=== PATIENT | female | born 1945 | race Caucasian/White ===

== ENCOUNTER 2016-07-22 09:57 | Outpatient (CLI) | payer MEDICARE, MEDICAID | END 2016-07-22 09:58 | disposition critical access hospital (66) | LOC: EMS 09:57 | PROVIDERS: ATTEND Surgery | DX: R10.10 Upper abdominal pain, unspecified (principal); R11.2 Nausea with vomiting, unspecified | CPT/HCPCS: A0425; A0427 ==

== ENCOUNTER 2016-07-22 10:37 | Inpatient (IN) | payer MEDICARE, MEDICAID ==
[2016-07-22] MEDS ORDERED: ONDANSETRON 4 MG/2 ML VIAL IVP STA (10:43)
[2016-07-22] MEDS ORDERED: SODIUM CHLORIDE 0.9% 1,000 ML IV ONE (10:43)
[2016-07-22] MEDS ORDERED: ACETAMINOPHEN 1,000 MG/100 ML 100 ML IV STA (10:43)
--- NOTE | 2016-07-22 10:45 | ED Physician Documentation ---
History of Present Illness - Stated complaint Stated Complaint: ABD PAIN,N/V, CHILLS - Chief complaint Chief Complaint: Abd Pain - Additonal information Additional information: hx from pt 71 female hx cervical cancer s/p hyst 1980 and also s/p appy and carl 2 days of upper abd pain intractable non bloody NV, no diarrhea, no urinary sx, no CP SO or fever no travel no bad food no sick contacts no hx of similar sx Review of Systems Constitutional: denies: Fever, Chills Cardiac: denies: Chest pain / pressure Respiratory: denies: Dyspnea GI: reports: Abdominal Pain, Nausea, Vomiting. denies: Diarrhea : denies: Dysuria Musculoskeletal: denies: Back pain Endocrine: denies: Easy bruising / bleeding Immunocompromised: denies: Immunocompromised PD PAST MEDICAL HISTORY - Allergies Allergies/Adverse Reactions: Allergies Allergy/AdvReac Type Severity Reaction Status Date / Time No Known Drug Allergies Allergy Verified 07/22/16 10:43 PD ED PE NORMAL - Vitals Vital signs reviewed: Yes - Neck Neck: Supple, no meningeal sign - Cardiac Cardiac: RRR - Respiratory Respiratory: No respiratory distress, Clear bilaterally - Abdomen Abdomen: Soft, Other (upper abd TTP, no pulsatile mass, no distension, no rebound or guarding) - Derm Derm: Normal color - Neuro Neuro: Alert and oriented X 3 Results - Vitals Vitals: Vital Signs - 24 hr 07/22/16 07/22/16 07/22/16 10:38 12:00 12:49 Temperature 36.2 C L Heart Rate 78 78 86 Respiratory 18 16 24 Rate Blood Pressure 114/80 144/80 H 158/97 H O2 Saturation 100 94 07/22/16 15:42 Temperature Heart Rate 68 Respiratory 13 Rate Blood Pressure 150/81 H O2 Saturation 95 Oxygen O2 Source Room air - EKG (time done) 1055 Rate: Rate (enter#) (74) Rhythm: NSR [place]: Normal Intervals: Normal OR Ischemia: Normal ST segments - Labs Labs: Laboratory Tests 07/22/16 07/22/16 07/22/16 11:34 11:34 11:34 WBC 15.6 H RBC 5.21 Hgb 16.2 H Hct 47.3 H MCV 90.8 MCH 31.1 H MCHC 34.2 RDW 13.8 Plt Count MPV Neut # 13.1 H Lymph # 1.5 Grainger # 0.9 Eos # 0.0 Baso # 0.1 Absolute Nucleated RBC 0.00 Nucleated RBCs 0.0 Manual Slide Review Indicated Platelet Estimate NORMAL (130-450,000) Platelet Morphology PLATELET CLUMPING RBC Morph Micro Appear NORMAL APPEARANCE Sodium 134 L Potassium 3.7 Chloride 90 L Carbon Dioxide 33 H Anion Gap 11.0 BUN 40 H Creatinine 0.7 Estimated GFR (MDRD) 83 L Glucose 129 H Glycated Hemoglobin Estim Average Glucose Calcium 9.0 Total Bilirubin 0.6 AST 13 ALT 13 Alkaline Phosphatase 83 Troponin I < 0.04 C-Reactive Protein Total Protein 6.9 Albumin 3.7 Globulin 3.2 Albumin/Globulin Ratio 1.2 Amylase Lipase 24 Urine Color Urine Clarity Urine pH Ur Specific [place] Urine Protein Urine Glucose (UA) Urine Ketones Urine Occult Blood Urine Nitrite Urine Bilirubin Urine Urobilinogen Ur Leukocyte Esterase Urine RBC Urine WBC Ur Squamous Epith Cells Amorphous Sediment Urine Bacteria Ur Microscopic Review Urine Culture Comments 07/22/16 07/22/16 07/22/16 11:34 11:34 13:18 WBC RBC Hgb Hct MCV MCH MCHC RDW Plt Count MPV Neut # Lymph # Grainger # Eos # Baso # Absolute Nucleated RBC Nucleated RBCs Manual Slide Review Platelet Estimate Platelet Morphology RBC Morph Micro Appear Sodium Potassium Chloride Carbon Dioxide Anion Gap BUN Creatinine Estimated GFR (MDRD) Glucose Glycated Hemoglobin 5.5 Estim Average Glucose 111 H Calcium Total Bilirubin AST ALT Alkaline Phosphatase Troponin I C-Reactive Protein < 1.0 Total Protein Albumin Globulin Albumin/Globulin Ratio Amylase 43 Lipase Urine Color YELLOW Urine Clarity CLOUDY Urine pH 6.0 Ur Specific [place] 1.025 Urine Protein 30 H Urine Glucose (UA) NEGATIVE Urine Ketones NEGATIVE Urine Occult Blood LARGE H Urine Nitrite POSITIVE H Urine Bilirubin NEGATIVE Urine Urobilinogen 1 (NORMAL) Ur Leukocyte Esterase NEGATIVE Urine RBC 11-25 H Urine WBC 4-5 Ur Squamous Epith Cells FEW Squamous Amorphous Sediment Moderate Urine Bacteria Many H Ur Microscopic Review INDICATED Urine Culture Comments INDICATED - Rads (name of study) abd sono Radiology: See rad report (large fluid in stomach) AAS Radiology: See rad report (normal - stomach does not appear distended) PD MEDICAL DECISION MAKING - ED course ED course: CT not avail so started with abd sono sono shows large amt fluid in stomach CT still not avail concern for SBO - got AAS AAS neg for SBO and stomach did not appear dilated on plain films - no AFL etc labs notable for urine infection gave rocephin despite zofran and IVF pt still feels terrible, weak, nauseated do not think she can be dced home will obs for IVF and antibiotics given hx cancer might consider getting a CT while pt is here when CT machine is functional again later today addendum - pt did get the CT after being admitted and it again shows a dilated stomach possibly gastroparesis or outlet obstruction Departure - Departure Disposition: ED Place in Observation Clinical Impression: Dehydration Urinary tract infection Qualifiers: Urinary tract infection type: site unspecified Hematuria presence: with hematuria Qualified Code(s): N39.0 - Urinary tract infection, site not specified Vomiting Qualifiers: Vomiting type: unspecified Vomiting Intractability: unspecified Nausea presence : with nausea Qualified Code(s): R11.2 - Nausea with vomiting, unspecified Discharge Date/Time: 07/22/16 17:46
[2016-07-22] MEDS ORDERED: ACETAMINOPHEN 1,000 MG/100 ML 100 ML IV ONE (11:12)
[2016-07-22] MEDS ORDERED: ONDANSETRON 4 MG/2 ML VIAL ONE (11:13)
[2016-07-22 11:44] LABS: BASOPHILS # (AUTO) 0.1 10^3/uL (0.0-0.1); BASOPHILS % (AUTO) 0.4 %; EOSINOPHILS % (AUTO) 0.1 %; HCT - HEMATOCRIT 47.3 % (37.0-47.0); HGB - HEMOGLOBIN 16.2 g/dL (12.0-16.0); LYMPHOCYTES # (AUTO) 1.5 10^3/uL (1.5-3.5); LYMPHOCYTES % (AUTO) 9.9 %; MEAN CORPUSCULAR HEMOGLOBIN 31.1 pg (27.0-31.0); MEAN CORPUSCULAR HGB CONC 34.2 g/dL (32.0-36.0); MEAN CORPUSCULAR VOLUME 90.8 fL (81.0-99.0); MONOCYTES # (AUTO) 0.9 10^3/uL (0.0-1.0); MONOCYTES % (AUTO) 5.5 %; NEUTROPHILS # (AUTO) 13.1 10^3/uL (1.5-6.6); NEUTROPHILS % (AUTO) 84.1 %; RED BLOOD COUNT 5.21 10^6/uL (4.20-5.40); RED CELL DISTRIBUTION WIDTH 13.8 % (12.0-15.0); UNCORRECTED WHITE BLOOD COUNT 17.5 x10^3/uL; WHITE BLOOD COUNT 15.6 x10^3/uL (4.8-10.8)
[2016-07-22 11:53] LABS: ALBUMIN/GLOBULIN RATIO 1.2 (1.0-2.2); BILIRUBIN,TOTAL 0.6 mg/dL (0.2-1.0); CREATININE 0.7 mg/dL (0.4-1.0); POTASSIUM 3.7 mmol/L (3.5-5.0); TOTAL PROTEIN 6.9 g/dL (6.7-8.2)
[2016-07-22 12:26] LABS: PLATELET ESTIMATE, MANUAL NORMAL (130-450,000) (NORMAL); PLATELET MORPHOLOGY PLATELET CLUMPING (NORMAL)
--- NOTE | 2016-07-22 13:00 | Ultrasound Report ---
COMPLETE ABDOMINAL ULTRASOUND: 07/22/2016 CLINICAL INDICATION: Abdominal pain. TECHNIQUE: Real-time scanning was performed with account service representative static images obtained. FINDINGS: The liver measures 13.4 cm. An 1.2 cm cyst is noted in the left lobe. No solid hepatic les ion or intrahepatic biliary dilatation is present. The common bile duct measures 7 mm. The patient is status post cholecystectomy. The right kidney measures 9.5 cm, and is unremarkable. A 2.9 cm calcifi cation is noted between the right kidney and liver, likely representing a calcified adrenal gland. Th e left kidney measures 9.7 cm, and demonstrates peripelvic cysts. The spleen measures 9.3 cm, and amrtina ears unremarkable. The abdominal aorta is normal in caliber. The inferior vena cava is unremarkable. There is a large amount of fluid within the stomach. No free fluid is seen. IMPRESSION: LARGE AMOUNT OF FLUID IN THE STOMACH. CHANGES OF CHOLECYSTECTOMY. LIKELY CALCIFICATION O F THE RIGHT ADRENAL GLAND, WHICH IS FREQUENTLY DUE TO REMOTE TRAUMA. JOB #: [id number] EXT JOB #:[id number]
[2016-07-22 13:28] LABS: BILIRUBIN,URINE NEGATIVE (NEGATIVE); UA w/ MICROSCOPIC CHARGE YES
[2016-07-22 13:45] LABS: UR CULTURE IF IND INDICATED
[2016-07-22] MEDS ORDERED: cefTRIAXone 1 GM in SODIUM CHLORIDE 0.9% MINIBAG 100 ML IV STA (13:50)
--- NOTE | 2016-07-22 13:52 | XRAY Preliminary Report ---
Exam: XR Abdomen Acute IMPRESSION: Normal abdominal series (including 1-view chest). [facility] SITE ID: [id number]
[2016-07-22] MEDS ORDERED: cefTRIAXone 1 GM VIAL ONE (13:54)
--- NOTE | 2016-07-22 13:55 | XRAY Report ---
EXAM: ABDOMINAL SERIES AND PA CHEST EXAM DATE: 07/22/2016 01:27 PM. CLINICAL HISTORY: Nausea and vomiting. Clinical concern for small bowel obstruction. COMPARISON: 07/22/2016 ultrasound. TECHNIQUE: 2 views abdomen and 1 view chest. FINDINGS: CHEST: Lungs/Pleura: No focal opacities. No effusion or pneumothorax. Mediastinum: Within exam limitations, cardiomediastinal contour is normal. ABDOMEN: Bowel Gas Pattern: Within normal limits. No dilated loops or abnormal fluid levels. Free Air: None. Other: None. IMPRESSION: Normal abdominal series (including 1-view chest). [facility] Referring Provider Line: [phone] SITE ID: [id number]
[2016-07-22 16:27] LABS: AMYLASE 43 U/L (28-100)
[2016-07-22 16:37] LABS: HEMOGLOBIN A1C 0.63 g/dL
[2016-07-22] MEDS ORDERED: ACETAMINOPHEN 325 MG TABLET PO PRN (17:07)
[2016-07-22] MEDS ORDERED: PROMETHAZINE 25 MG/1 ML VIAL IM PRN (17:07)
[2016-07-22] MEDS ORDERED: PROCHLORPERAZINE 10 MG/2 ML VIAL IVP PRN (17:07)
[2016-07-22] MEDS ORDERED: ONDANSETRON 4 MG/2 ML VIAL IVP PRN (17:07)
[2016-07-22] MEDS ORDERED: SODIUM CHLORIDE FLUSH 0.9% 10 ML SYRINGE IVP PRN (17:07)
[2016-07-22] MEDS ORDERED: IOPAMIDOL-300 100 ML VIAL IVP ONE (18:00)
[2016-07-22] MEDS: SODIUM CHLORIDE FLUSH 0.9% 10 ML SYRINGE IVP SCH (18:14)
[2016-07-22] MEDS: D5.45NS W/20 MEQ KCL 1,000 ML IV SCH (18:14)
[2016-07-22] MEDS: CIPROFLOXACIN 400 MG/200 ML 200 ML IV SCH (18:14)
[2016-07-22] MEDS: NICOTINE 21 MG PATCH TOP SCH (18:15)
[2016-07-22] MEDS: PANTOPRAZOLE 40 MG VIAL IVP SCH (18:15)
[2016-07-22 18:39] LABS: BILIRUBIN,URINE NEGATIVE (NEGATIVE); PH,URINE 8.5 PH (5.0-7.5)
--- NOTE | 2016-07-22 18:49 | HISTORY & PHYSICAL EXAMINATION ---
DATE OF ADMISSION: 07/22/2016 CHIEF COMPLAINT: Abdominal pain, nausea, vomiting and chills with intractable vomiting. PRIMARY CARE PROVIDER: Nelida Manuel. HISTORY OF PRESENT ILLNESS: The patient is a 71-year-old thin female who [facility] with a complaint of abdominal pain, nausea, vomiting x3 days, worsening today. The patient states ashok t she has had 2 days of upper abdominal pain, 3 days of intractable nonbloody vomiting, nausea, no di arrhea, that came on quickly. The patient states that she has been in her usual state of health prior to before this started. The patient states that today her symptoms became worse. She started having burning upper chest pain and was vomiting bile. She states she has had no sick contacts, she has not eaten anything that did not agree with her stomach and she has had no history of travel. She has neve r had similar symptoms like this in the past. She states that a couple days ago she was given some yo gurt. She had some smoothies that were made by her daughter, and she has not eaten any other food ashok t is not normally what she eats. The patient states that she has even been unable to drink water. She has lost a great deal of weight over the last month and a half, greater than 10 pounds. She has had a lot of stress in her life at this time. She denies smoking any marijuana recently, last time was ap proximately 3 weeks ago. She also smokes cigarettes. Last cigarette she smoked was 3 days ago, and sh e does not drink alcohol. She denies chest pain or shortness of breath. She denies dysuria, hematuria . She has had no numbness, tingling to extremities. No easy bruising or any bleeding from the rectum. She does report having generalized abdominal pain primarily in the upper right and left quadrant ashok t radiates to the back. She is positive for nausea and intractable vomiting. She denies having diarrh ea. The patient was evaluated in the ER. She has had an ultrasound of the abdomen, as well as pending a C T of abdomen and pelvis. She is negative for Feliz sign. She has had her gallbladder and appendix re moved. The patient has no fever at this time. She was noted to have an elevated white blood cell coun t of 15.6 with an elevated hemoglobin and is slightly dehydrated. Troponins were also done which was negative. Amylase and lipase were also within normal limits. Urinalysis was performed that did come b ack positive for nitrites, blood, and multiple white blood cell counts. This was a clean catch, a cat heterized urine has been requested since the first had no leukocyte esterase noted. Questionable whet her this is a urinary source infection or not. The patient does have significant history of cervical cancer with a hysterectomy back in 1980. The patient will be admitted into observation for further ev aluation and management of vomiting and hydration. ALLERGIES: NO KNOWN DRUG ALLERGIES. HOME MEDICATIONS: None. PAST MEDICAL HISTORY: Includes cervical cancer, hysterectomy, nicotine dependence, unexplained weight loss. PAST SURGICAL HISTORY: Includes cholecystectomy, appendectomy, hysterectomy. FAMILY HISTORY: The patient states that family had a history of cancer, including grandmother. She do es have children. She is not and is retired. SOCIAL HISTORY: The patient does smoke cigarettes, denies drinking alcohol and has smoked marijuana; however, it has been several weeks. She does not use any other illicit drugs. REVIEW OF SYSTEMS: Ten systems have been reviewed and are negative with the exception as discussed in HPI prior. She is negative for chest pain, shortness of breath, numbness, tingling to extremities, h eadaches. Positive for weakness and fatigue, intractable vomiting, nausea and abdominal pain. PHYSICAL EXAMINATION: CONSTITUTIONAL: The patient is alert, in no acute distress. EYES: Pupils equal, round and react to light and accommodation. Conjunctivae and sclerae was nonicter ic, not injected. ENT: Nares are patent. No nasal discharge. Oropharynx: No masses, exudates or lesions. Mucous membran es moist. NECK: Supple. No thyromegaly noted. CARDIOVASCULAR: S1, S2 noted. No gallops, murmurs or rubs. RESPIRATORY: Breath sounds are clear and equal bilaterally to auscultation and percussion, no retract ions, nasal flaring, or increased work of breathing. GASTROINTESTINAL: Abdomen was soft, nontender. Bowel sounds are hypoactive. No guarding or rebound. GENITOURINARY: No CVA tenderness. No masses palpated. No bladder distention. SKIN: SKIN: Warm, dry, intact. Normal turgor. No evidence of rash, lesions, or cellulitis. MUSCULOSKELETAL: No cyanosis. Pulses were palpable to upper and lower extremities bilaterally. Motor is 5/5 bilaterally. NEUROLOGIC: Sensory is intact, alert, GCS 15. Cranial nerves 2-12 grossly intact. HEMATOLOGIC: No active bleeding. The patient is hemodynamically stable. LYMPHATICS: No cervical, axillary, supraclavicular lymphadenopathy was noted. VITAL SIGNS: Temperature is 36.2, heart rate 78, blood pressure is 114/80, respirations 18, saturatin g 100% on room air. LABORATORY DATA: I personally reviewed all laboratory and diagnostic data in the medical records. The y are as follows. Sodium 134, chloride 90, carbon dioxide 33, BUN 40, GFR 83, glucose 129. Troponin 0 .04. CRP is less than 1, amylase 43, lipase 24, alkaline phosphatase 83, total bilirubin is 0.6. WBC is 15.6, hemoglobin 16.2. Urine is positive for protein, occult blood, nitrites, with negative leukoc yte esterase, red blood cells 11-25 and many bacteria. DIAGNOSTICS: I personally reviewed the diagnostic data, and medical records for 07/22/2016 and result s are as follows. IMAGING: Abdominal ultrasound with impression that shows large amount of fluid in the stomach, change s of cholecystectomy, likely calcification of the right adrenal gland which is frequently due to darlene te trauma, peripelvic cysts, spleen is unremarkable, abdominal aorta normal in caliber and inferior v alec cava is unremarkable. No free fluid is seen. Common bile duct that measures 7 mm. No solid hepati c lesion or intrahepatic biliary dilatation is present. Liver with a 1.2 cm cyst noted in the left lo be. ACUTE ABDOMINAL SERIES, impression shows no focal opacities, no effusion, no pneumothorax, bowel gas pattern is within normal limits. No dilated loops or abnormal fluid levels. No free air. A CT of abdomen and pelvis is pending at this time. ASSESSMENT: 1. Acute intractable vomiting with nausea secondary to possible infection of the kidney with unknown causal organism and possible calcified adrenal gland. 2. Unexplained weight loss with history of cervical metastasis. 3. Nicotine dependence, cigarettes, uncomplicated. 4. Leukocytosis, acute unspecified. 5. Hyponatremia with other electrolyte imbalances from fluid loss. 6. Acute mild dehydration with intractable vomiting. PLAN: 1. Admit the patient to observation, Zofran and Phenergan for nausea and vomiting. CT of abdomen and pelvis pending at this time. The patient will remain n.p.o. Once tolerating food will advance to a ca rdiac diet. IV fluids for gentle hydration and monitoring of electrolytes. Monitoring of kidney funct ion since the patient has acute kidney injury. Continue to monitor amylase, lipase. Continue to monit or white blood cell count. The patient is asymptomatic at this time. No fever; however, blood culture s have been done and will continue to monitor for fever and elevated white blood cell count. Repeat u rinalysis with catheterization since first one was clean catch. If warranted, continue the patient on antibiotic therapy. She was given Rocephin in the ER. Provided counseling for nicotine dependence an d smoking cessation. We will give a nicotine patch. 2. Deep venous thrombosis prophylaxis with SCDs and Lovenox. 3. Tylenol for fever management. 4. The patient was placed on bowel protocol, also given Protonix IV 40 mg for PPI. Time spent on assessment, evaluation with the patient was 45 minutes for assessment and planning. RISK ASSESSMENT/DISPOSITION: The patient is high risk for worsening comorbidities. She will require I V medication with high risk for toxicity. Additional diagnostics, potential surgical consult, and cod e status was addressed at bedside. CODE STATUS: THE PATIENT IS A FULL CODE. The patient was placed in observation status. She will require 1 overnight at this time. JOB #: [id number] EXT JOB #:[id number]
--- NOTE | 2016-07-22 19:04 | CT Preliminary Report ---
Exam: CT Abdomen/Pelvis W/ IMPRESSION: 1. The stomach is fluid-filled and markedly distended. Findings may represent gastric outlet obstruc tion or gastroparesis. 2. The small bowel demonstrates no acute abnormalities. 3. There is distal colon diverticulosis without evidence of diverticulitis. 4. There is a peripherally calcified hypodense lesion within the right suprarenal region. This may be secondary to prior right adrenal infection or trauma. 5. There is mild enlargement of the left adrenal gland which measures 1.9 x 0.9 cm. Comparison with p rior imaging is recommended to demonstrate stability of this finding. 6. No acute focal abnormalities are seen. [facility] SITE ID: [id number]
--- NOTE | 2016-07-22 19:07 | CT Report ---
EXAM: CT ABDOMEN AND PELVIS EXAM DATE: 07/22/2016 06:04 PM. CLINICAL HISTORY: Weight loss. COMPARISONS: None. TECHNIQUE: Routine helical CT imaging was performed through the abdomen and pelvis. IV contrast: 100 cc Isovue-300. Enteric contrast: No. Reconstructions: Coronal and sagittal. In accordance with CT protocol optimization, one or more of the following dose reduction techniques w ere utilized for this exam: automated exposure control, adjustment of mA and/or KV based on patient s ize, or use of iterative reconstructive technique. FINDINGS: Lung Bases: Unremarkable. Liver: Normal. No masses. Gallbladder/Bile Ducts: The gallbladder is surgically absent. Mild intra-and extra hepatic bile duct dilatation which can be within normal limits status post cholecystectomy. Spleen: Normal. Pancreas: Normal. Adrenal Glands: Peripherally calcified hypodensity measuring 2.5 x 2.2 cm within the right suprarenal region may be secondary to prior adrenal infection or trauma. There is mild enlargement of the left adrenal gland. Kidneys: Normal. No masses or hydronephrosis. Peritoneal Cavity/Bowel: There is marked distention of stomach with fluid. The duodenum is decompress ed. Small bowel demonstrates no acute abnormalities. There is moderate stool within colon. There is n o evidence of intraperitoneal free air or free fluid. No enlarged mesenteric or retroperitoneal lymph nodes. The appendix is not clearly seen. Pelvic Organs: No acute pelvic organ abnormalities are seen. Vasculature: There are atheromatous calcifications of the aorta and iliac vessels. Bones: No significant abnormality. Other: None. IMPRESSION: 1. The stomach is fluid-filled and markedly distended. Findings may represent gastric outlet obstruc tion or gastroparesis. 2. The small bowel demonstrates no acute abnormalities. 3. There is distal colon diverticulosis without evidence of diverticulitis. 4. There is a peripherally calcified hypodense lesion within the right suprarenal region. This may be secondary to prior right adrenal infection or trauma. 5. There is mild enlargement of the left adrenal gland which measures 1.9 x 0.9 cm. Comparison with p rior imaging is recommended to demonstrate stability of this finding. 6. No acute focal abnormalities are seen. [facility] Referring Provider Line: [phone] SITE ID: [id number]
[2016-07-22 19:14] LABS: UR CULTURE IF IND INDICATED; WBC,URINE 0-3 /HPF (0-5)
[2016-07-22] MEDS ORDERED: oxyCODONE 5 MG TABLET PO PRN (20:26)
[2016-07-22] MEDS: MORPHINE 2 MG/ML SYRINGE IVP PRN (20:44)
[2016-07-23] MEDS: D5.45NS W/20 MEQ KCL 1,000 ML IV SCH ×2 (01:25→19:46)
[2016-07-23] MEDS: CIPROFLOXACIN 400 MG/200 ML 200 ML IV SCH (06:00)
[2016-07-23] MEDS: SODIUM CHLORIDE FLUSH 0.9% 10 ML SYRINGE IVP SCH ×3 (06:00→19:46)
[2016-07-23] MEDS: PANTOPRAZOLE 40 MG VIAL IVP SCH (06:00)
[2016-07-23] MEDS: TAMSULOSIN 0.4 MG CAPSULE PO SCH (09:15)
[2016-07-23] MEDS: ENOXAPARIN 40 MG/0.4 ML SYRINGE SUBQ SCH (09:15)
[2016-07-23] MEDS: POLYETHYLENE GLYCOL 3350 17 GM PACKET PO SCH (09:17)
[2016-07-23] MEDS: NICOTINE 21 MG PATCH TOP SCH (09:17)
[2016-07-23] MEDS ORDERED: BARIUM SULFATE 135 ML BOTTLE PO ONE (11:02)
--- NOTE | 2016-07-23 11:40 | XRAY Report ---
SINGLE-CONTRAST UPPER GI: 07/23/2016 CLINICAL INDICATION: Possible gastric outlet obstruction. FINDINGS: Initial steam hand view of the abdomen demonstrates no significant interval change from plain films of 07/22/2016. No small bowel dilatation is seen. The patient ingested thick barium. The stomach is distended, with a large amount of fluid within the lumen. Only a trickle of barium could be passed through the first portion of the duodenum, which appeared extremely narrowed on all images. Contrast passed freely through the second and third portions of the duodenum, the fourth portion of the duodenum, and into proximal jejunum. A small amount of gastroesophageal reflux was visualized during the course of the study. IMPRESSION: MARKED NARROWING OF THE FIRST PORTION OF THE DUODENUM, COMPATIBLE WITH GASTRIC OUTLET OBSTRUCTION. CONSIDER CORRELATION WITH ENDOSCOPY. Fluoroscopy time: 5 minutes, 36 seconds; 35 spot images obtained. JOB #: [id number] EXT JOB #: [id number] [facility]
[2016-07-23] MEDS ORDERED: BENZOCAINE/TETRACAINE/BUTAMBEN SPRAY 56 GM TOP ONE (15:07)
[2016-07-23] MEDS ORDERED: SODIUM CHLORIDE 0.9% 1,000 ML IV ONE (15:07)
--- NOTE | 2016-07-23 15:22 | PROVIDER PROGRESS NOTE ---
Assessment/Plan - Problem List (1) Gastric outlet obstruction Assessment/Plan: ongoing. Patient is NPO. UGI showed marked narrowing of the first portion of the duodenum, compatible with gastric outlet obstruction. Patient is to go for endoscopy with Dr. Langley. (2) Abnormal loss of weight Assessment/Plan: ongoing, poss related to obstruction and intractable vomiting with history of cervical cancer. EGD scheduled. nutrition consult recommended. (3) Intractable vomiting with nausea Qualifiers: Vomiting type: unspecified Qualified Code(s): R11.2 - Nausea with vomiting , unspecified Assessment/Plan: improving. Patient is NPO. will continue to give IV zofran and phenergan as needed. monitor electrolytes with dailylabs (4) Nicotine dependence, cigarettes, uncomplicated Assessment/Plan: ongoing. nicotine patch as needed and counseling and education given for cessation - Current Meds Current Meds: Current Medications Generic Name Dose Route Start Last Admin Trade Name Freq PRN Reason Stop Dose Admin Enoxaparin Sodium 40 mg 07/23/16 09:00 07/23/16 09:15 Lovenox SUBQ 40 mg DAILY NAZIA Administration Potassium Chloride/Dextrose/Sod Cl 1,000 mls @ 100 mls/hr 07/22/16 18:00 01:25 D5.45ns W/20 Meq Kcl IV 100 mls/hr .Q10H NAZIA Administration Morphine Sulfate 2 mg 07/22/16 20:26 07/22/16 20:44 Morphine IVP 2 mg Q2HR PRN Administration PAIN Nicotine 1 patch 07/22/16 18:00 07/23/16 09:17 Nicoderm TOP Not Given DAILY NAZIA Pantoprazole Sodium 40 mg 07/22/16 18:00 07/23/16 06:00 Protonix IVP 40 mg QDAC NAZIA Administration Polyethylene Glycol 17 gm 07/23/16 09:00 07/23/16 09:17 Miralax PO Not Given DAILY NAZIA Sodium Chloride 10 ml 07/22/16 22:00 07/23/16 09:17 Normal Saline Flush 0.9% IVP 10 ml Q8HR NAZIA Administration Tamsulosin HCl 0.4 mg 07/23/16 09:00 07/23/16 09:15 Flomax PO 0.4 mg DAILY NAZIA Administration - Lab Result Lab results reviewed: Yes Fish Bone Diagrams: 07/22/16 11:34 07/22/16 11:34 Other Lab Results: Abnormal Lab Results 07/22/16 07/22/16 07/22/16 11:34 11:34 11:34 WBC 15.6 x10^3/uL H x10^3/uL (4.8-10.8) Hgb 16.2 g/dL H g/dL (12.0-16.0) Hct 47.3 % H % (37.0-47.0) MCH 31.1 pg H pg (27.0-31.0) Neut # 13.1 10^3/uL H 10^3/uL (1.5-6.6) Sodium 134 mmol/L L mmol/L (135-145) Chloride 90 mmol/L L mmol/L (101-111) Carbon Dioxide 33 mmol/L H mmol/L (21-32) BUN 40 mg/dL H mg/dL (6-20) Estimated GFR (MDRD) 83 L (>89) Glucose 129 mg/dL H mg/dL (70-100) Estim Average Glucose 111 H (70-100) Urine pH Urine Protein Urine Occult Blood Urine Nitrite Urine RBC Urine Bacteria 07/22/16 07/22/16 13:18 18:20 WBC Hgb Hct MCH Neut # Sodium Chloride Carbon Dioxide BUN Estimated GFR (MDRD) Glucose Estim Average Glucose Urine pH 8.5 PH H PH (5.0-7.5) Urine Protein 30 mg/dL H mg/dL (NEGATIVE) Urine Occult Blood LARGE H MODERATE H (NEGATIVE) (NEGATIVE) Urine Nitrite POSITIVE H POSITIVE H (NEGATIVE) (NEGATIVE) Urine RBC 11-25 /HPF H /HPF 6-10 /HPF H /HPF (0-5) (0-5) Urine Bacteria Many /HPF H /HPF Moderate /HPF H /HPF (None Seen) (None Seen) - EKG Results EKG Interpreted Independently: No - Diagnostic Imaging Results Diagnostic Imaging Results: positive: Prelim report reviewed, See rad report Diagnostic Imaging Results Comments: Pending EGD for gastric outlet obstruction - Additional Planning Condition/Complexity: Stable My Orders: My Active Orders 07/22/16 17:07 Activity Orders [RC] Routine IO [RC] IOSHIFT Initiate Bowel Care Protocol [RC] QSHIFT Initiate Flu Vaccine Screening [RC] .once Initiate Line Care Protocol [RC] QSHIFT Initiate Personal Care Protoco [RC] QSHIFT Initiate Pneumonia Vaccine Scr [RC] .once Oxygen Therapy [RC] Routine Vital Signs [RC] Q8HR Acetaminophen [Tylenol] 650 mg PO Q4HR PRN Ondansetron Inj [Zofran Inj] 4 mg IVP Q6HR PRN Prochlorperazine Inj [Compazine Inj] 10 mg IVP Q6HR PRN Promethazine Inj [Phenergan Inj] 25 mg IM Q6HR PRN Sodium Chloride Flush 0.9% [Normal Saline Flush 0.9%] 10 ml IVP PRN PRN Code Status [OTHERS] Routine Condition of Patient [OTHERS] Routine DVT Prophylaxis [OTHERS] Routine 07/22/16 17:08 Daily Weight [RC] 0600 07/22/16 17:09 Foot Pumps [RC] QSHIFT 07/22/16 18:00 D5.45ns W/20 Meq KCl 1,000 ml IV 100 mls/hr Nicotine 21 mg Patch [Nicoderm] 1 patch TOP DAILY Pantoprazole [Protonix] 40 mg IVP QDAC 07/22/16 18:20 CUL, URINE [RM] Stat 07/22/16 22:00 Sodium Chloride Flush 0.9% [Normal Saline Flush 0.9%] 10 ml IVP Q8HR 07/23/16 08:55 NPO [DIET] 07/23/16 09:00 Enoxaparin [Lovenox] 40 mg SUBQ DAILY Polyethylene Glycol 3350 [Miralax] 17 gm PO DAILY Tamsulosin [Flomax] 0.4 mg PO DAILY 07/23/16 13:15 General Surgery Consult [CONS] Routine Consult/Specialty: OT, PT, Surgery Plan Discussed with:: Patient, Case Management Time Spent: 31-60 minutes (Patient will require another 24-48 hours inpatient treatment. She is scheduled for EGD for obstruction. She will require IV medication with high risk for toxicity, additional diagnostics and consult.) Subjective - Subjective Patient Reports: Resting Comfortably, No Complaints Nursing Reports: No Complaints, Vomitting (vomiting is controlled. no nausea) Objective Vital Signs: Vital Signs - 24 hr 07/22/16 07/22/16 07/23/16 18:10 21:05 00:30 Temperature 37.2 C 37.2 C 36.7 C Heart Rate [ 76 69 63 Brachial] Respiratory 16 16 16 Rate Blood Pressure 130/78 109/66 110/66 [Right Brachial artery] O2 Saturation 96 94 95 07/23/16 07/23/16 07/23/16 04:50 08:54 12:52 Temperature 36.6 C 37.0 C 37.2 C Heart Rate [ 70 65 68 Brachial] Respiratory 16 18 18 Rate Blood Pressure 107/70 107/62 106/68 [Right Brachial artery] O2 Saturation 96 98 96 Oxygen O2 Source Room air I&O (Last 24 Hrs): Intake and Output Totals x24h 07/21/16 07/22/16 07/23/16 23:59 23:59 23:59 Intake Total 504 1300 Balance 504 1300 General: Alert, Oriented x3, Cooperative HEENT: PERRLA Neck: Supple, No JVD Lymphatic: no adenopathy Neuro: Alert, CN 2-12 Grossly Intact, Oriented Times 3 Cardiovascular: Regular rate, Normal S1, Normal S2 Respiratory: Chest non-tender, No respiratory distress, Breath sounds nml Abdomen: Normal bowel sounds, Soft, No hepatospenomegaly Genitourinary: No Bleeding Rectal: Non-Tender Extremities: No clubbing, No cyanosis, No edema, Normal pulses, No tenderness/ swelling Skin: No rashes, No breakdown, No significant lesion - Results Results: Laboratory Results WBC 15.6 x10^3/uL (4.8-10.8) H 07/22/16 11:34 RBC 5.21 10^6/uL (4.20-5.40) 07/22/16 11:34 Hgb 16.2 g/dL (12.0-16.0) H 07/22/16 11:34 Hct 47.3 % (37.0-47.0) H 07/22/16 11:34 MCV 90.8 fL (81.0-99.0) 07/22/16 11:34 MCH 31.1 pg (27.0-31.0) H 07/22/16 11:34 MCHC 34.2 g/dL (32.0-36.0) 07/22/16 11:34 RDW 13.8 % (12.0-15.0) 07/22/16 11:34 Plt Count 10^3/uL (130-450) 07/22/16 11:34 MPV fL (7.9-10.8) 07/22/16 11:34 Neut # 13.1 10^3/uL (1.5-6.6) H 07/22/16 11:34 Lymph # 1.5 10^3/uL (1.5-3.5) 07/22/16 11:34 [place] # 0.9 10^3/uL (0.0-1.0) 07/22/16 11:34 Eos # 0.0 10^3/uL (0.0-0.7) 07/22/16 11:34 Baso # 0.1 10^3/uL (0.0-0.1) 07/22/16 11:34 Absolute Nucleated RBC 0.00 x10^3/uL 07/22/16 11:34 Nucleated RBCs 0.0 /100WBC 07/22/16 11:34 Manual Slide Review Indicated 07/22/16 11:34 Platelet Estimate NORMAL (130-450,000) (NORMAL) 07/22/16 11:34 Platelet Morphology PLATELET CLUMPING (NORMAL) 07/22/16 11:34 RBC Morph Micro Appear NORMAL APPEARANCE (NORMAL) 07/22/16 11:34 Sodium 134 mmol/L (135-145) L 07/22/16 11:34 Potassium 3.7 mmol/L (3.5-5.0) 07/22/16 11:34 Chloride 90 mmol/L (101-111) L 07/22/16 11:34 Carbon Dioxide 33 mmol/L (21-32) H 07/22/16 11:34 Anion Gap 11.0 (6-13) 07/22/16 11:34 BUN 40 mg/dL (6-20) H 07/22/16 11:34 Creatinine 0.7 mg/dL (0.4-1.0) 07/22/16 11:34 Estimated GFR (MDRD) 83 (>89) L 07/22/16 11:34 Glucose 129 mg/dL (70-100) H 07/22/16 11:34 Glycated Hemoglobin 5.5 % (4.6-6.2) 07/22/16 11:34 Estim Average Glucose 111 (70-100) H 07/22/16 11:34 Calcium 9.0 mg/dL (8.5-10.3) 07/22/16 11:34 Total Bilirubin 0.6 mg/dL (0.2-1.0) 07/22/16 11:34 AST 13 IU/L (10-42) 07/22/16 11:34 ALT 13 IU/L (10-60) 07/22/16 11:34 Alkaline Phosphatase 83 IU/L (42-121) 07/22/16 11:34 Troponin I < 0.04 ng/mL (<0.49) 07/22/16 11:34 C-Reactive Protein < 1.0 mg/dL (0-1.0) 07/22/16 11:34 Total Protein 6.9 g/dL (6.7-8.2) 07/22/16 11:34 Albumin 3.7 g/dL (3.2-5.5) 07/22/16 11:34 Globulin 3.2 g/dL (2.1-4.2) 07/22/16 11:34 Albumin/Globulin Ratio 1.2 (1.0-2.2) 07/22/16 11:34 Amylase 43 U/L (28-100) 07/22/16 11:34 Lipase 24 U/L (22-51) 07/22/16 11:34 TSH 2.49 uIU/mL (0.34-5.60) 07/22/16 11:34 Free T4 1.20 ng/dL (0.58-1.64) 07/22/16 11:34 Free T3 pg/mL 2.58 pg/mL (2.5-3.9) 07/22/16 11:34 PTH Intact 42 pg/mL (12-88) 07/23/16 06:35 Urine Color YELLOW 07/22/16 18:20 Urine Clarity CLEAR (CLEAR) 07/22/16 18:20 Urine pH 8.5 PH (5.0-7.5) H 07/22/16 18:20 Ur Specific [place] 1.010 (1.002-1.030) 07/22/16 18:20 Urine Protein NEGATIVE mg/dL (NEGATIVE) 07/22/16 18:20 Urine Glucose (UA) NEGATIVE mg/dL (NEGATIVE) 07/22/16 18:20 Urine Ketones NEGATIVE mg/dL (NEGATIVE) 07/22/16 18:20 Urine Occult Blood MODERATE (NEGATIVE) H 07/22/16 18:20 Urine Nitrite POSITIVE (NEGATIVE) H 07/22/16 18:20 Urine Bilirubin NEGATIVE (NEGATIVE) 07/22/16 18:20 Urine Urobilinogen 1 (NORMAL) E.U./dL (NORMAL) 07/22/16 18:20 Ur Leukocyte Esterase NEGATIVE (NEGATIVE) 07/22/16 18:20 Urine RBC 6-10 /HPF (0-5) H 07/22/16 18:20 Urine WBC 0-3 /HPF (0-5) 07/22/16 18:20 Ur Squamous Epith Cells FEW Squamous (<= Few) 07/22/16 18:20 Amorphous Sediment Moderate /LPF 07/22/16 13:18 Urine Bacteria Moderate /HPF (None Seen) H 07/22/16 18:20 Ur Microscopic Review INDICATED 07/22/16 13:18 Urine Culture Comments INDICATED 07/22/16 18:20
[2016-07-23] MEDS ORDERED: EPINEPHrine 1 MG/ML AMP IVP ONE (15:24)
[2016-07-23] MEDS ORDERED: LACTATED RINGERS 1,000 ML IV ONE (16:04)
[2016-07-23] MEDS ORDERED: PHENOL THROAT SPRAY 177 ML MM PRN (18:30)
[2016-07-23] MEDS ORDERED: PPN (CLINIMIX E 4.25/5) 2,000 ML with MULTIVITAMIN 10 ML, TRACE ELEMENTS V CONC 1 ML IV SCH ×3 (19:00)
[2016-07-23] MEDS ORDERED: FAT EMULSION 20% 250 ML IV SCH (19:00)
[2016-07-23] MEDS: BENZOCAINE/MENTHOL LOZENGE MM PRN (19:08)
[2016-07-23] MEDS: MORPHINE 2 MG/ML SYRINGE IVP PRN ×2 (22:31→23:52)
[2016-07-24] MEDS: MORPHINE 2 MG/ML SYRINGE IVP PRN ×3 (05:00→14:53)
[2016-07-24 06:07] LABS: BASOPHILS % (AUTO) 0.5 %; EOSINOPHILS # (AUTO) 0.3 10^3/uL (0.0-0.7); EOSINOPHILS % (AUTO) 4.9 %; HCT - HEMATOCRIT 37.6 % (37.0-47.0); HGB - HEMOGLOBIN 12.8 g/dL (12.0-16.0); LYMPHOCYTES # (AUTO) 2.5 10^3/uL (1.5-3.5); MEAN CORPUSCULAR HEMOGLOBIN 31.2 pg (27.0-31.0); MEAN CORPUSCULAR VOLUME 91.6 fL (81.0-99.0); MEAN PLATELET VOLUME 8.6 fL (7.9-10.8); MONOCYTES # (AUTO) 0.4 10^3/uL (0.0-1.0); MONOCYTES % (AUTO) 6.1 %; NEUTROPHILS # (AUTO) 3.7 10^3/uL (1.5-6.6); NEUTROPHILS % (AUTO) 53.5 %; RED BLOOD COUNT 4.11 10^6/uL (4.20-5.40); RED CELL DISTRIBUTION WIDTH 13.6 % (12.0-15.0)
[2016-07-24] MEDS: SODIUM CHLORIDE FLUSH 0.9% 10 ML SYRINGE IVP SCH ×2 (06:21→14:28)
[2016-07-24] MEDS: PANTOPRAZOLE 40 MG VIAL IVP SCH (06:21)
[2016-07-24] MEDS: BENZOCAINE/MENTHOL LOZENGE MM PRN (06:27)
[2016-07-24 06:32] LABS: ALBUMIN/GLOBULIN RATIO 1.3 (1.0-2.2); BILIRUBIN,TOTAL 0.4 mg/dL (0.2-1.0); CALCIUM 8.2 mg/dL (8.5-10.3); CREATININE 0.6 mg/dL (0.4-1.0); POTASSIUM 3.5 mmol/L (3.5-5.0)
--- NOTE | 2016-07-24 08:50 | Discharge Plan ---
Discharge Plan Disposition: 02 Transfer Acute Care Hosp Condition: Stable Activity Restrictions: Activity as Tolerated Shower Restrictions: No Driving Restrictions: No Weight Bearing: Full Weight Additional Instructions or Follow Up instructions: Patient to transfer to [facility] with transport [facility], under the care of Dr Barron Weldon. Patient to go to the surgical unit 10S. She will need evaluation with surgical oncology. She is to have the NG tube clamped and continue with IVF PPN in route. Please send all medical transcripts and copies of EGD and UGI and xrays with patient to [facility]. Please contact family to notify of patient transfer. Please continue with all home medications as prescribed to be held if necessary by transfer facility since patient is to remain NPO at this time. Continue with oxygen therapy in route with transfer. No Smoking: If you smoke, Please STOP! Call for help.
[2016-07-24] MEDS: ENOXAPARIN 40 MG/0.4 ML SYRINGE SUBQ SCH (09:11)
[2016-07-24] MEDS: NICOTINE 21 MG PATCH TOP SCH (09:11)
[2016-07-24] MEDS: TAMSULOSIN 0.4 MG CAPSULE PO SCH (09:11)
[2016-07-24] MEDS: POLYETHYLENE GLYCOL 3350 17 GM PACKET PO SCH (09:13)
[2016-07-24 11:40] VITALS: BP 93/56
[2016-07-24] MEDS ORDERED: fentaNYL 100 MCG/2 ML VIAL IVP ONE (15:05)
[2016-07-24] MEDS ORDERED: GLYCOPYRROLATE 1 MG/5 ML VIAL IVP ONE (15:05)
[2016-07-24] MEDS ORDERED: MIDAZOLAM 2 MG/2 ML VIAL IVP ONE (15:05)
[2016-07-24] MEDS ORDERED: PROPOFOL 200 MG/20 ML VIAL IVP ONE (15:05)
[2016-07-24] MEDS ORDERED: KETAMINE 500 MG/10 ML VIAL IVP ONE (15:05)
--- NOTE | 2016-07-24 15:22 | DISCHARGE SUMMARY ---
DATE OF ADMISSION: 07/23/2016 DATE OF DISCHARGE: 07/24/2016 DISCHARGING PROVIDER: Margie Cm NP. ADMITTING DIAGNOSES: Intractable nausea and vomiting with possible gastric outlet obstruction. Urinary source infection, unspecified DISCHARGE DIAGNOSES 1. 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 2. Unexplained weight loss. 3. Nicotine dependence, cigarettes, uncomplicated. CONSULTATIONS: Surgery, Physical and Occupational Therapy. PROCEDURES Abdomen ultrasound, impression: A large amount of fluid in the stomach, changes of cholecystectomy, likely calcification of the right adrenal gland, which is frequently due to remote trauma. CT of abdomen and pelvis, impression: Shows static fluid filled remarkably distended. Findings represent gastric outlet obstruction, gastroparesis. Small bowel demonstrates no acute abnormalities. Distal colon, diverticulosis without evidence of diverticulitis. Peripherally calcified hypodense lesion with the right suprarenal region secondary to prior right adrenal infection or trauma, mild enlargement of the left adrenal gland, which measures 1.9 x 0.9 cm. Compare with prior imaging is recommended to demonstrate stability of this finding, but no acute focal abnormalities are seen. Upper GI series, impression: Shows marked narrowing of the first portion of the duodenum compatible with gastric outlet obstruction. Consider correlation with endoscopy. Endoscopy, impression: Shows significant for pyloric mass/tumor and personal history of cervical cancer. Biopsies were taken. HOSPITAL COURSE AND TREATMENT: The patient is a 71-year-old thin female who presented through the ER with a complaint of intractable nausea and vomiting with a history of anorexia for approximately 2-3 weeks prior. The patient has a significant history for cervical cancer status post hysterectomy in 1980. Also, history of appendectomy and cholecystectomy. She has had no bad food. No sick contacts or no traveling prior to coming to the ER. She had no complaint of bloody stool, no diarrhea, no chest pain or shortness of breath, but significant for vomiting with no ability to tolerate even liquids. The patient was worked up in the ER, found to have significant elevated white blood cell count of 15.6, hyponatremia, mild dehydration and possible gastric outlet obstruction. The patient was admitted for further evaluation. Consult was made to surgery for an upper GI series and possible EGD. Upper gastrointestinal series did show possible mild obstruction with fluid in the stomach and recommended EGD. Dr. Zapata performed EGD on the patient with biopsies. It was noted that she had a large pyloric mass with a history of cervical cancer. The patient was also started on Rocephin while in the ER for a possible urinary source of infection. The ER urine was a clean catch and dirty. Urine was cultured and found to be positive for E coli. with the dirty specimen. A new specimen of urine by urine cath was obtained and cultured. NO growth and no symptoms. Patient did not need to continue on antibiotics since there was no urinary source infection. Once it was determined that patient had an obstruction with distended stomach and pyloric mass, an NG tube was placed to decompress the stomach. Recommendation was made by the surgical team that the patient be transferred to higher level of care for further evaluation with Surgical Oncology. Call was made to [facility] by recommendation of the patient's family for transfer. Dr. Barron Weldon was contacted and he gladly accepted the patient for transfer. Family was then notified and the patient was prepared for transport for higher level of care. Prior to discharge, the patient had been started on PPN for nutritional support, she had been on IV fluids of D5 1/2 normal saline with 20 of K. IV fluids were stopped prior to PPN being started. The patient continued on Zofran IV for nausea, Protonix 40 mg IV for PPI. The patient's overall wellbeing and demeanor had improved once she knew she was being transferred to a higher level of care. Dr. Zapata was made aware of the patient's status and transfer. PHYSICAL EXAMINATION VITAL SIGNS: At the time of transfer were 36.8, 69, blood pressure was 93/56, respirations 18. She is sating at 94% on room air. CONSTITUTIONAL: The patient was alert, no acute distress. EYES: Pupils are equal, round and react to light and accommodation. Conjunctivae and sclerae was nonicteric, not injected. ENT: Nares are patent. No nasal discharge. Oropharynx with no masses, exudates or lesions. Mucous membranes were moist. NECK: Supple. No thyromegaly. CARDIOVASCULAR: S1, S2 noted. No gallops, murmurs or rubs. RESPIRATORY: Breath sounds are clear and equal bilaterally to auscultation and percussion, no retractions or nasal flaring. GASTROINTESTINAL: Abdomen was soft, nontender. NG tube in place, clamped, no distention, and air was heard for placement of NG tube. SKIN: Warm, dry, intact. Normal turgor. No evidence of rash, lesions, or cellulitis. HEMATOLOGIC: No active bleeding. The patient is hemodynamically stable. LYMPHATICS: No cervical, axillary, supraclavicular lymphadenopathy was noted. PSYCHIATRIC: Pleasant mood. No suicidal ideation and oriented x3. NEUROLOGIC: She was alert, GCS 15. Cranial nerves 2 through 12 grossly intact. Sensory was intact. MUSCULOSKELETAL/EXTREMITIES: The patient had full range of motion with upper and lower extremities. No cyanosis. Pulses were palpable. GENITOURINARY: No CVA tenderness. No masses palpated. No bladder distention. MEDICATIONS AT TIME OF DISCHARGE: hospital ordered 1. Lovenox SQ. 2. Zofran 3. Phenergan IV 4. Protonix 40 mg IV b.i.d. 5. PPN IV for nutrition Patient takes no home medications. INSTRUCTION FOR FOLLOWUP AND DISCHARGE The patient is to be transferred to [facility] under the care of Dr. Barron Weldon. She is to go to the surgical wing [address] [place] [address]. Number has been given for nurse and nurse report. Confirmation and accepting physician has been sent. CT results, EGD results, which was pushed from [facility] to [facility]. All other medical records to be transported with the patient via ACLS ground. The patient was notified and family notified of progress. The patient is stable at the time of transport. Vital signs were within normal limits. The patient is to remain n.p.o. NG tube in place. She will need further evaluation from Oncology and surgical team. She will be admitted under the care of Internal Medicine. Time spent on planning, education and counseling was 50 minutes. STATUS: The patient was to remain a FULL CODE STATUS at time of transfer. Reason for transfer to [facility] was because of inability to care for patient and needing a higher level of care and no Oncology services available. JOB #: [id number] EXT JOB #:[id number] [facility]
== END 2016-07-24 15:50 | disposition short-term general hospital (02) | DRG 392 ==
LOC: ED 10:37 → MS 15:57 → OBSVTOIN 07-23 15:24 → MS 07-23 16:19
PROVIDERS: ADMIT Nurse Practitioner; ATTEND Nurse Practitioner
PROC: 0DB78ZX Excision of Stomach, Pylorus, Via Natural or Artificial Opening Endoscopic, Diagnostic (ICD-10-PCS; principal; 2016-07-22)
PROC: 3E0336Z Introduction of Nutritional Substance into Peripheral Vein, Percutaneous Approach (ICD-10-PCS; 2016-07-22)
DX: K31.9 Disease of stomach and duodenum, unspecified (principal); K31.1 Adult hypertrophic pyloric stenosis; E87.0 Hyperosmolality and hypernatremia; N39.0 Urinary tract infection, site not specified; Z68.1 Body mass index [BMI] 19.9 or less, adult; E86.0 Dehydration; R63.4 Abnormal weight loss; D72.829 Elevated white blood cell count, unspecified; F17.200 Nicotine dependence, unspecified, uncomplicated; Z85.41 Personal history of malignant neoplasm of cervix uteri; Z90.710 Acquired absence of both cervix and uterus; Z90.49 Acquired absence of other specified parts of digestive tract
CPT/HCPCS: 36415; 43239; 74022; 74177; 74241; 76700; 80053; 81001; 81003; 82150; 83036; 83519; 83690; 83735; 83970; 84439; 84443; 84481; 84484; 85025; 86140; 87077; 87086; 88305; 93005; 93010; 96361; 96365; 96366; 96367; 96372; 96375; 99283; 99284; G0378

== ENCOUNTER 2016-07-24 16:00 | Outpatient (CLI) | payer MEDICARE, MEDICAID | END 2016-07-24 16:01 | disposition short-term general hospital (02) | LOC: EMS 16:00 | PROVIDERS: ATTEND Surgery | DX: R10.9 Unspecified abdominal pain (principal) | CPT/HCPCS: A0170; A0425; A0426 ==

== ENCOUNTER 2019-11-01 11:57 | Emergency (ER) | payer MEDICARE, MEDICAID ==
[2019-11-01 12:07] VITALS: BP 124/65
[2019-11-01] MEDS ORDERED: KETOROLAC 30 MG/ML VIAL IM STA (12:26)
--- NOTE | 2019-11-01 12:28 | ED Physician Documentation ---
PD HPI LOWER EXT INJURY - Stated complaint Stated Complaint: L KNEE INJ/GLF - Chief complaint Chief Complaint: Ext Problem - History obtained from History obtained from: Patient, Family - History of Present Illness PD HPI LOW EXT INJURY LOCATION: Left, Knee Type of injury: Fall, Twist Where injury occurred: Home Timing - onset: How many hours ago (16) Timing - details: Abrupt onset Improved by: Rest, Immobilization Worsened by: Moving, Palpating Associated symptoms: Swelling. No: Weakness, Numbness, Tingling Similar symptoms before: Has not had sx before Recently seen: Not recently seen - Additional information Additional information: 74-year-old female presents the emergency department with left knee pain. Reports walking down a gravel driveway yesterday evening falling. She had immediate pain in the left medial knee and has been unable to bear weight since. She reports that she is had to hop to get around and use the mosley to make her way in her home. She has no history of previous knee injury Review of Systems Constitutional: reports: Reviewed and negative Ears: reports: Reviewed and negative Nose: reports: Reviewed and negative Throat: reports: Reviewed and negative Cardiac: reports: Reviewed and negative Respiratory: reports: Reviewed and negative GI: reports: Reviewed and negative : reports: Reviewed and negative Skin: reports: Abrasion (s) (left knee) Musculoskeletal: reports: Joint pain (left knee), Joint swelling Neurologic: reports: Reviewed and negative PD PAST MEDICAL HISTORY - Past Medical History Cardiovascular: None Respiratory: Pneumonia Endocrine/Autoimmune: None GI: Other CREATIVE MANAGER: Other : None HEENT: None Psych: None Musculoskeletal: None Derm: None - Past Surgical History Past Surgical History: Yes General: Cholecystectomy, Appendectomy /CREATIVE MANAGER: Hysterectomy - Present Medications Home Medications: Ambulatory Orders Medication Instructions Recorded Confirmed Ibuprofen [Motrin] 600 mg PO Q6H PRN #30 tab 11/01/19 - Allergies Allergies/Adverse Reactions: Allergies Allergy/AdvReac Type Severity Reaction Status Date / Time acetaminophen [From Vicodin] Allergy Hives Verified 11/01/19 12:07 hydrocodone [From Vicodin] Allergy Hives Verified 11/01/19 12:07 - Social History Does the pt smoke?: Yes Smoking Status: Current every day smoker Does the pt drink ETOH?: No Does the pt have substance abuse?: No PD ED PE EXPANDED - General General: Alert, In Pain - Extremities Extremities: Left knee (Significant swelling left knee medially. There is surrounding ecchymosis and superficial abrasion. No tenderness of the patella or proximal tibia. Will not allow stress testing. Able to flex and extend knee fully though painful.) Results - Vitals Vitals: Vital Signs - 24 hr 11/01/19 12:03 Temperature 36.6 C Heart Rate 81 Respiratory 16 Rate Blood Pressure 124/65 O2 Saturation 97 Oxygen O2 Source Room air - Rads (name of study) left knee Radiology: Final report received (No fracture or dislocation. Moderate joint effusion. 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 She has a moderate effusion on the medial side of the joint and some significant tenderness but is able to norm ally flex and extend. She does not allow valgus or varus stress testing. X-ray does not show an obvious fracture. However at this time I favor that she likely has a contusion or severe knee sprain. She was placed in an Conrado bandage which she stated helped improve the pain as well as a knee immobilizer and given crutches. I will recommend NSAID medications for the next week as well as limited weightbearing. I will make a referral to orthopedics if her symptoms are not markedly better within the next 2 weeks she may need to have an MRI for further evaluation of internal knee derangement. No suspicion for joint infection given presentation. Emergent return precautions discussed Departure - Departure Disposition: 01 Home, Self Care Clinical Impression: Effusion, left knee Left knee sprain Qualifiers: Encounter type: initial encounter Involved ligament of knee: medial collateral ligament Qualified Code(s): S83.412A - Sprain of medial collateral ligament of left knee, initial encounter Contusion of left knee Qualifiers: Encounter type: initial encounter Qualified Code(s): S80.02XA - Contusion of left knee, initial encounter Condition: Stable Record reviewed to determine appropriate education?: Yes Instructions: ED Effusion Knee, ED Sprain Knee Follow-Up: [facility] [Provider Group] Prescriptions: Ibuprofen [Motrin] 600 mg PO Q6H PRN #30 tab PRN Reason: Pain Comments: The x-ray of your knee does not show any broken bones. However you do have fluid around the knee and this is called an effusion. We typically see effusions when the knee is badly sprained. As discussed I would like you to wear the Conrado wrap when you are out of bed as well as the knee immobilizer. Take it gentle on your knee for the next week and use the crutches to get around. It is important that you schedule a follow-up appointment with the orthopedic doctors. If your knee pain and swelling is not markedly better in a few weeks you may need further evaluation with an MRI. If at any point you develop worsening knee pain, have fevers or severe swelling please return to the ER for a second look
[2019-11-01] MEDS ORDERED: IBUPROFEN 600 MG TABLET PO STA (12:44)
--- NOTE | 2019-11-01 12:46 | XRAY Report ---
PROCEDURE: Knee 4 View LT INDICATIONS: left knee pain swelling, GLF TECHNIQUE: 4 views of the left knee were acquired. COMPARISON: None. FINDINGS: Bones: No fractures or dislocations. There is slight lateral shift of the patella with mild narrowin g in the lateral patellofemoral compartment. The joint spaces in the medial and lateral compartments appear preserved. No suspicious bony lesions. Soft tissues: There is a moderate joint effusion. There is chondrocalcinosis demonstrated. There is a trophy of the visualized muscular fracture. IMPRESSION: 1. No fracture or dislocation. 2. Moderate joint effusion. 3. 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 Reviewed by: Rj Vogt MD on 11/01/2019 12:45 PM PDT Approved by: Rj Vogt MD on 11/01/2019 12:45 PM PDT Station ID: [id number]
== END 2019-11-01 13:24 | disposition home or self-care (01) ==
LOC: ED 11:57
DX: M25.462 Effusion, left knee (principal); S83.412A Sprain of medial collateral ligament of left knee, initial encounter; W01.0XXA Fall on same level from slipping, tripping and stumbling without subsequent striking against object, initial encounter; X50.1XXA Overexertion from prolonged static or awkward postures, initial encounter; F17.200 Nicotine dependence, unspecified, uncomplicated
CPT/HCPCS: 73564; 99283; A9270

== ENCOUNTER 2021-04-10 16:45 | Outpatient (CLI) | payer MEDICARE, MEDICAID ==
--- NOTE | 2021-04-10 20:42 | XRAY Report ---
PROCEDURE: Hand 3 View LT INDICATIONS: XRAY TECHNIQUE: 3 views of the hand acquired. COMPARISON: None. FINDINGS: Bones: Generalized osteopenia. No acute fractures or dislocations. No suspicious bony lesions. Sca ttered mild degenerative changes are seen in the interphalangeal joints of the fingers. Soft tissues: No suspicious soft tissue calcifications. IMPRESSION: No acute osseous abnormality. If symptoms persist or there is continued clinical concern, further margaret luation with MRI or CT may be helpful. Reviewed by: Uriel Hernandez MD on 04/10/2021 8:41 PM PST Approved by: Uriel Hernandez MD on 04/10/2021 8:41 PM PST Station ID: [id number]
== END 2021-04-10 16:46 | disposition home or self-care (01) ==
LOC: DI.S 16:45
PROVIDERS: ATTEND Physician Assistant Medical
DX: S60.032A Contusion of left middle finger without damage to nail, initial encounter (principal)